=== PATIENT | female | born 1980 | race American Indian/Alaskan Native ===

== ENCOUNTER 2016-10-01 14:05 | Emergency (ER) | payer SELFPAY ==
[2016-10-01 15:14] LABS: Bilirubin,Urine NEG (Negative); Blood,Urine NEG (Negative); Ketones,Urine NEG (Negative); Leukocyte Esterase,Urine NEG (Negative); Mucus,Urine FEW /HPF; Nitrite,Urine NEG (Negative); Protein,Urine <15 mg/dL mg/dL (Negative); Urobilinogen,Urine < 2.0 mg/dL (<2.0)
[2016-10-01 15:26] LABS: Basophils % (Auto) 0.4 % (0.0-1.8); Eosinophils % (Auto) 0.8 % (0.0-4.3); Hematocrit 40.4 % (30.3-42.9); Hemoglobin 13.1 gm/dl (10.1-14.3); Mean Corpuscular HGB Conc 32 % (30-34); Mean Corpuscular Hemoglobin 28 pg (28-32); Mean Corpuscular Volume 86 fl (79-97); Platelet Count 278 K/mm3 (140-440); Red Blood Count 4.69 M/mm3 (3.65-5.03); Red Cell Distribution Width 14.3 % (13.2-15.2); White Blood Count 5.1 K/mm3 (4.5-11.0)
[2016-10-01 19:28] LABS: Alanine Aminotransferase 27 units/L (7-56); Albumin 4.2 g/dL (3.9-5); Alkaline Phosphatase 42 units/L (35-129); BUN/Creatinine Ratio 13.33; Blood Urea Nitrogen 8 mg/dL (7-17); Calcium 9.4 mg/dL (8.4-10.2); Carbon Dioxide 22 mmol/L (22-30); Glucose 94 mg/dL (65-100); Lipase 17 units/L (13-60); Total Protein 8.4 g/dL (6.3-8.2)
[2016-10-01 19:29] LABS: Anion Gap 18 mmol/L; Chloride 96.2 mmol/L (98-107); Potassium 3.7 mmol/L (3.6-5.0); Sodium 132 mmol/L (137-145)
[2016-10-02] MEDS ORDERED: TORADOL IV ONE (01:59)
[2016-10-02] MEDS ORDERED: ZOFRAN IV ONE (01:59)
--- NOTE | 2016-10-02 02:06 | Emergency Department Report ---
HPI - General Chief Complaint: Abdominal Pain Time Seen by Provider: 10/02/16 01:51 - HPI HPI: Room 7 The patient is a 36-year-old female presenting with a chief complaint right- sided abdominal pain. Patient states she's had intermittent pain in the right upper quadrant and right back for 1 month. Patient describes pain as burning and sharp in nature. The patient states there has been no association with meals she has noticed. Patient does admit to nausea but denies vomiting. Patient states her pain increased yesterday prompted her to come to the emergency department. Patient denies fever or diarrhea. Patient denies dysuria or hematuria. The patient currently gives her pain a score of 6/10. Location: Right upper quadrant, right back Duration: Intermittent 1 month Quality: Sharp/Burning Severity: 6/10 Modifying factors: [see above] Context: [see above] Mode of transportation: The patient drove herself to the emergency department and there are no visitors present ED Past Medical Hx - Past Medical History Hx Headaches / Migraines: Yes - Surgical History Past Surgical History?: No - Family History Family history: no significant - Social History Smoking Status: Never Smoker Substance Use Type: Alcohol (occasional) - Medications Home Medications: Home Medications Medication Instructions Recorded Confirmed Last Taken Type Butalb/Acetamin/Caff 50-325-40 1 tab PO Q8HR PRN 10/02/16 10/02/16 Unknown History [Fioricet] Famotidine [Pepcid] 20 mg PO BID #30 tablet 10/02/16 Unknown Rx HYDROcodone/APAP 5-325 [[place] 1 - 2 each PO Q6HR PRN #14 tablet 10/02/16 Unknown Rx 5/325] Ondansetron [Zofran ODT TAB] 8 mg PO Q8HR #20 tab.rapdis 10/02/16 Unknown Rx ED Review of Systems ROS: Stated complaint: R SIDE ABD/BACK PAIN/BURNING Other details as noted in HPI Comment: All other systems reviewed and negative Constitutional: denies: chills, fever Eyes: denies: eye pain, eye discharge, vision change ENT: denies: ear pain, throat pain Respiratory: denies: cough, shortness of breath, wheezing Cardiovascular: denies: chest pain, palpitations Endocrine: no symptoms reported Gastrointestinal: abdominal pain, nausea, constipation. denies: vomiting, diarrhea Genitourinary: denies: urgency, dysuria, discharge Musculoskeletal: back pain. denies: joint swelling, arthralgia Skin: denies: rash, lesions Neurological: denies: headache, weakness, paresthesias Psychiatric: denies: anxiety, depression Hematological/Lymphatic: denies: easy bleeding, easy bruising Physical Exam - Physical Exam Vital Signs: Vital Signs 10/01/16 10/02/16 10/02/16 14:40 00:53 00:55 Temperature 98.3 F Pulse Rate 71 94 H Respiratory 18 14 Rate Blood Pressure 119/75 O2 Sat by Pulse 100 83 L 100 Oximetry 10/02/16 10/02/16 00:56 00:57 Temperature Pulse Rate 78 83 Respiratory 13 20 Rate Blood Pressure 122/74 122/74 O2 Sat by Pulse 100 99 Oximetry Physical Exam: GENERAL: The patient is well-developed well-nourished female lying on stretcher appearing to be in mild discomfort. [] HEENT: Normocephalic. Atraumatic. Extraocular motions are intact. Patient has moist mucous membranes. NECK: Supple. Trachea midline CHEST/LUNGS: Clear to auscultation. There is no respiratory distress noted. HEART/CARDIOVASCULAR: Regular. There is no tachycardia. There is no gallop rub or murmur. ABDOMEN: Abdomen is soft, with tenderness to palpation in the right upper quadrant, right lower quadrant left lower quadrant. There is no rebound or guarding. Absent Iverson sign. Patient has normal bowel sounds. There is no abdominal distention. SKIN: There is no rash. There is no edema. There is no diaphoresis. NEURO: The patient is awake, alert, and oriented. The patient is cooperative. The patient has normal speech MUSCULOSKELETAL: There is no evidence of acute injury. ED Course Vital Signs 10/01/16 10/02/16 10/02/16 14:40 00:53 00:55 Temperature 98.3 F Pulse Rate 71 94 H Respiratory 18 14 Rate Blood Pressure 119/75 O2 Sat by Pulse 100 83 L 100 Oximetry 10/02/16 10/02/16 00:56 00:57 Temperature Pulse Rate 78 83 Respiratory 13 20 Rate Blood Pressure 122/74 122/74 O2 Sat by Pulse 100 99 Oximetry ED Medical Decision Making - Lab Data Result diagrams: 10/01/16 15:01 10/01/16 18:43 Laboratory Tests 10/01/16 10/01/16 10/01/16 14:45 15:01 15:01 WBC 5.1 RBC 4.69 Hgb 13.1 Hct 40.4 MCV 86 MCH 28 MCHC 32 RDW 14.3 Plt Count 278 Lymph % (Auto) 37.1 H Lipscomb % (Auto) 6.5 Eos % (Auto) 0.8 Baso % (Auto) 0.4 Lymph # 1.9 Lipscomb # 0.3 Eos # 0.0 Baso # 0.0 Seg Neutrophils % 55.2 Seg Neutrophils # 2.8 Sodium Potassium Chloride Carbon Dioxide Anion Gap BUN Creatinine Estimated GFR BUN/Creatinine Ratio Glucose Calcium Total Bilirubin AST ALT Alkaline Phosphatase Total Protein Albumin Albumin/Globulin Ratio Lipase HCG, Qual Negative Urine Color Yellow Urine Turbidity Clear Urine pH 6.0 Ur Specific [place] 1.018 Urine Protein <15 mg/dl Urine Glucose (UA) Neg Urine Ketones Neg Urine Blood Neg Urine Nitrite Neg Urine Bilirubin Neg Urine Urobilinogen < 2.0 Ur Leukocyte Esterase Neg Urine WBC (Auto) 1.0 Urine RBC (Auto) 2.0 U Epithel Cells (Auto) 3.0 Urine Mucus Few 10/01/16 18:43 WBC RBC Hgb Hct MCV MCH MCHC RDW Plt Count Lymph % (Auto) Lipscomb % (Auto) Eos % (Auto) Baso % (Auto) Lymph # Lipscomb # Eos # Baso # Seg Neutrophils % Seg Neutrophils # Sodium 132 L Potassium 3.7 Chloride 96.2 L Carbon Dioxide 22 Anion Gap 18 BUN 8 Creatinine 0.6 L Estimated GFR > 60 BUN/Creatinine Ratio 13.33 Glucose 94 Calcium 9.4 Total Bilirubin 0.20 AST 19 ALT 27 Alkaline Phosphatase 42 Total Protein 8.4 H Albumin 4.2 Albumin/Globulin Ratio 1.0 Lipase 17 HCG, Qual Urine Color Urine Turbidity Urine pH Ur Specific [place] Urine Protein Urine Glucose (UA) Urine Ketones Urine Blood Urine Nitrite Urine Bilirubin Urine Urobilinogen Ur Leukocyte Esterase Urine WBC (Auto) Urine RBC (Auto) U Epithel Cells (Auto) Urine Mucus - Radiology Data Radiology results: report reviewed (CT Abd/Pelvis), image reviewed (CT Abd/ Pelvis) CT abdomen and pelvis (read by radiologist)-there is a 9 mm cortical cyst in the right kidney. There are stones. There is no hydronephrosis. In the left kidney there is a corporate area of low density measuring 2.5 cm with peripheral calcification. This demonstrates postcontrast enhancement. This could be evidence of old injury with scarring. Possible mass not excluded. MRI may be indicated for further evaluation. There is no bowel obstruction, colitis or enteritis. The appendix is normal. The uterus is unremarkable. There is an involuting cyst in the right ovary measuring 2.5 cm which may have recently ruptured. There is a small amount of free pelvic fluid which could be secondary to ovarian cyst rupture. There is no free air. There is no abscess or adenopathy. - Differential Diagnosis renal colic, cholelithiasis, pyelonephritis, constipation, peptic ulcer dis Critical care attestation.: If time is entered above; I have spent that time in minutes in the direct care of this critically ill patient, excluding procedure time. ED Disposition Clinical Impression: Right sided abdominal pain, Renal cyst, Ovarian cyst Disposition: TO HOME OR SELFCARE Is pt being admited?: No Does the pt Need Aspirin: No Condition: Stable Instructions: Abdominal Pain (ED) Additional Instructions: Return to the emergency department immediately should you develop worsening symptoms, fever, inability to tolerate food or liquid or any other concerns. Prescriptions: Famotidine [Pepcid] 20 mg PO BID #30 tablet HYDROcodone/APAP 5-325 [[place] 5/325] 1 - 2 each PO Q6HR PRN #14 tablet PRN Reason: Pain Ondansetron [Zofran ODT TAB] 8 mg PO Q8HR #20 tab.rapdis Referrals: PRIMARY CARE, [Primary Care Provider] - 3-5 Days LEE JARAMILLO MD [Staff Physician] - 3-5 Days (Dr. Jaramillo is a quartz mounter. Please follow up with him for further evaluation of your abdominal pain) MARIUSZ CORTEZ MD [Staff Physician] - 3-5 Days (Dr. Cortez is a urologist. Please follow up with him for further evaluation of your kidney cyst.) Time of Disposition: 04:35
[2016-10-02] MEDS ORDERED: NACL ONE (02:30)
--- NOTE | 2016-10-02 04:21 | Cat Scan Report ---
FINAL REPORT PROCEDURE: CT ABDOMEN PELVIS W CON TECHNIQUE: Computerized axial tomography of the abdomen and pelvis was performed after the IV injection of iodinated nonionic contrast. HISTORY: right flank, right sided abdominal pain COMPARISON: No prior studies are available for comparison. FINDINGS: Visualized lower thorax: No significant abnormality. Liver: Normal size and attenuation. Spleen: Normal size and attenuation. Gallbladder and biliary system: Normal. Pancreas: Normal. Adrenals: Normal. Kidneys: There is a 9 millimeter cortical cyst in the right kidney. There are no kidney stones. There is no hydronephrosis. In the left kidney there is a cortical area of low density measuring 2.5 centimeters with peripheral calcification. This demonstrates postcontrast enhancement. This could be evidence of old injury with scarring. Possible mass not excluded. MRI may be indicated for further evaluation.. GI tract: There is no bowel obstruction, colitis or enteritis. The appendix is normal.. Lymph nodes and mesentery: Normal. Vasculature: Normal. Bladder: Normal. Reproductive organs: The uterus is unremarkable. There is an involuting cyst in the right ovary measuring 2.5 centimeters which may have recently ruptured.. Peritoneum: There is a small amount of free pelvic fluid which could be secondary to ovarian cyst rupture. There is no free air. There is no abscess or adenopathy.. Musculoskeletal structures: No significant abnormality. Other: None. IMPRESSION: There is a 9 millimeter cortical cyst in the right kidney. There are no kidney stones. There is no hydronephrosis. In the left kidney there is a cortical area of low density measuring 2.5 centimeters with peripheral calcification. This demonstrates postcontrast enhancement. This could be evidence of old injury with scarring. Possible mass not excluded. MRI may be indicated for further evaluation.. There is no bowel obstruction, colitis or enteritis. The appendix is normal.. The uterus is unremarkable. There is an involuting cyst in the right ovary measuring 2.5 centimeters which may have recently ruptured.. There is a small amount of free pelvic fluid which could be secondary to ovarian cyst rupture. There is no free air. There is no abscess or adenopathy..
[2016-10-02 04:57] VITALS: BP 102/56
== END 2016-10-02 04:56 | disposition home or self-care (01) ==
LOC: ED 14:05
DX: N28.1 Cyst of kidney, acquired (principal); N83.209 Unspecified ovarian cyst, unspecified side; Z88.6 Allergy status to analgesic agent
CPT/HCPCS: 36415; 74177; 80053; 81001; 83690; 84703; 85025; 96374; 96375; 99284; J1885; J2405; Q9967

== ENCOUNTER 2018-11-17 14:28 | Emergency (ER) | payer OTHER ==
--- NOTE | 2018-11-17 14:34 | Emergency Department Report ---
Blank Doc - Documentation Documentation: This is a 38-year-old female that presents with abdominal pain with some nausea. This initial assessment/diagnostic orders/clinical plan/treatment(s) is/are subject to change based on patient's health status, clinical progression and re- assessment by fellow clinical providers in the ED. Further treatment and workup at subsequent clinical providers discretion. Patient/guardians urged not to elope from the ED as their condition may be serious if not clinically assessed and managed. Initial orders include: 1- Patient sent to [facility] for further evaluation and treatment 2- labs 3- UA
[2018-11-17 15:16] LABS: Basophils % (Auto) 0.6 % (0.0-1.8); Eosinophils % (Auto) 1.4 % (0.0-4.3); Hematocrit 37.3 % (30.3-42.9); Lymphocytes # (Auto) 1.5 K/mm3 (1.2-5.4); Lymphocytes % (Auto) 52.3 % (13.4-35.0); Mean Corpuscular HGB Conc 32 % (30-34); Mean Corpuscular Volume 87 fl (79-97); Monocytes # (Auto) 0.3 K/mm3 (0.0-0.8); Monocytes % (Auto) 10.7 % (0.0-7.3); Platelet Count 258 K/mm3 (140-440); Red Blood Count 4.29 M/mm3 (3.65-5.03); Red Cell Distribution Width 14.8 % (13.2-15.2)
[2018-11-17 15:31] LABS: Color,Urine Red (Yellow)
[2018-11-17 15:32] LABS: Bacteria,Urine 1+ /HPF (Negative); Bilirubin,Urine NEG (Negative); Blood,Urine NEG (Negative); Protein,Urine <15 mg/dL mg/dL (Negative); RBC,Urine < 1.0 /HPF (0.0-6.0); Urobilinogen,Urine < 2.0 mg/dL (<2.0); WBC,Urine < 1.0 /HPF (0.0-6.0)
[2018-11-17 15:49] LABS: Alanine Aminotransferase 20 units/L (7-56); Albumin 4.3 g/dL (3.9-5); BUN/Creatinine Ratio 11; Blood Urea Nitrogen 8 mg/dL (7-17); Calcium 9.3 mg/dL (8.4-10.2); Hemolysis Index 24
[2018-11-17] MEDS ORDERED: BENTYL PO ONE (16:01)
[2018-11-17] MEDS ORDERED: ZOFRAN ODT PO ONE (16:01)
[2018-11-17] MEDS ORDERED: PEPCID PO ONE (16:02)
--- NOTE | 2018-11-17 16:09 | Emergency Department Report ---
ED Abdominal Pain HPI - General Chief Complaint: Abdominal Pain Stated Complaint: STOMACH PAIN/NAUSEA Time Seen by Provider: 11/17/18 14:32 Source: patient Mode of arrival: Ambulatory Limitations: No Limitations - History of Present Illness Initial Comments: This is a 38-year-old female who presents to ED complaining of right upper quadrant abdominal pain that started a week ago. Patient states she went to the ER last week think she had chest pain and had a workup for chest pain. Patient states that pain is worsening and she is started to localize it to her upper abdomen and chest. Patient states any worsening past couple of days. Patient's issues of nausea or bleeding feeling somewhat upper abdomen. She denies vomiting/diarrhea/pelvic pain/chest shortness of breath MD Complaint: abdominal pain Location: RUQ Radiation: none Migration to: no migration Severity: mild, moderate Severity scale (0 -10): 5 Quality: cramping Consistency: intermittent Worsens With: eating - Related Data Home Medications Medication Instructions Recorded Confirmed Last Taken Butalb/Acetamin/Caff 50-325-40 1 tab PO Q8HR PRN 10/02/16 10/02/16 Unknown [Fioricet] Previous Rx's Medication Instructions Recorded Last Taken Type Famotidine [Pepcid] 20 mg PO BID #30 tablet 10/02/16 Unknown Rx HYDROcodone/APAP 5-325 [[place] 1 - 2 each PO Q6HR PRN #14 tablet 10/02/16 Unknown Rx 5/325] Ondansetron [Zofran ODT TAB] 8 mg PO Q8HR #20 tab.rapdis 10/02/16 Unknown Rx Dicyclomine [Bentyl] 10 mg PO TID #20 capsule 11/17/18 Unknown Rx Ondansetron [Zofran ODT TAB] 8 mg PO Q8HR #20 tab.rapdis 11/17/18 Unknown Rx Allergies Allergy/AdvReac Type Severity Reaction Status Date / Time codeine Allergy Shortness Verified 11/17/18 14:29 of Breath ED Review of Systems ROS: Stated complaint: STOMACH PAIN/NAUSEA Other details as noted in HPI Comment: All other systems reviewed and negative ED Past Medical Hx - Past Medical History Previous Medical History?: No Hx Headaches / Migraines: Yes - Surgical History Past Surgical History?: No - Social History Smoking Status: Never Smoker Substance Use Type: None - Medications Home Medications: Home Medications Medication Instructions Recorded Confirmed Last Taken Type Butalb/Acetamin/Caff 50-325-40 1 tab PO Q8HR PRN 10/02/16 10/02/16 Unknown History [Fioricet] Famotidine [Pepcid] 20 mg PO BID #30 tablet 10/02/16 Unknown Rx HYDROcodone/APAP 5-325 [[place] 1 - 2 each PO Q6HR PRN #14 tablet 10/02/16 Unknown Rx 5/325] Ondansetron [Zofran ODT TAB] 8 mg PO Q8HR #20 tab.rapdis 10/02/16 Unknown Rx Dicyclomine [Bentyl] 10 mg PO TID #20 capsule 11/17/18 Unknown Rx Ondansetron [Zofran ODT TAB] 8 mg PO Q8HR #20 tab.rapdis 11/17/18 Unknown Rx ED Physical Exam - General Limitations: No Limitations General appearance: alert, in no apparent distress - Head Head exam: Present: atraumatic, normocephalic - Eye Eye exam: Present: normal appearance - ENT ENT exam: Present: mucous membranes moist - Neck Neck exam: Present: normal inspection - Respiratory Respiratory exam: Present: normal lung sounds bilaterally. Absent: respiratory distress - Cardiovascular Cardiovascular Exam: Present: regular rate, normal rhythm. Absent: systolic murmur, diastolic murmur, rubs, gallop - GI/Abdominal GI/Abdominal exam: Present: soft, tenderness, normal bowel sounds. Absent: distended, guarding, rebound, mass (to palpation of the upper right quadrant) - Extremities Exam Extremities exam: Present: normal inspection - Back Exam Back exam: Present: normal inspection - Neurological Exam Neurological exam: Present: alert, oriented X3 - Psychiatric Psychiatric exam: Present: normal affect, normal mood - Skin Skin exam: Present: warm, dry, intact, normal color. Absent: rash ED Course Vital Signs 11/17/18 11/17/18 14:33 18:41 Temperature 98.3 F Pulse Rate 98 H 786 H Respiratory 16 Rate Blood Pressure 123/78 Blood Pressure 121/81 [Left] O2 Sat by Pulse 100 100 Oximetry ED Medical Decision Making - Lab Data Result diagrams: 11/17/18 14:55 11/17/18 14:55 - Radiology Data Radiology results: report reviewed, image reviewed LIMITED RUQ ABDOMINAL ULTRASOUND INDICATION: RUQ pain. COMPARISON: No relevant prior imaging study available. FINDINGS: Pancreas: Visualized portions show no significant abnormality. Abdominal Aorta: No significant abnormality. IVC: No significant abnormality. Liver: No significant abnormality. Normal hepatopedal blood flow in the main portal vein. Gallbladder: There is a tiny 4 mm polyp in the posterior gallbladder wall. No gallstones. Bile ducts: No significant abnormality. Common bile duct measures 2.5 mm. Right kidney: No significant abnormality visualized.. Free fluid: None. Additional Findings: None. IMPRESSION: 1. Tiny gallbladder polyp, which does not require dedicated imaging follow-up in the absence of known risk factors for gallbladder malignancy. 2. No acute findings. No gallstones identified.. Signer Name: Ruy Lau MD Signed: 11/17/2018 5:37 PM Workstation Name: [id number] Transcribed By: COREEN Dictated By: Ruy Lau MD Electronically Authenticated By: Ruy Lau MD Signed Date/Time: 11/17/18 4587 - Medical Decision Making 38-year-old female presents with gall bladder cyst causing abdominal pain Patient received Zofran and Pepcid and Bentyl in the ED. Abdominal ultrasound shows gallbladder states no other abnormality Discussed findings with the patient. Discussed patient to follow-up with fly raiser lockstitch. Patient is erythematous instructions and states she will follow up. Patient received fentanyl and Zofran for relief as home medications. Patient is in no acute distress. Vital signs are stable Critical care attestation.: If time is entered above; I have spent that time in minutes in the direct care of this critically ill patient, excluding procedure time. ED Disposition Clinical Impression: Cyst of gallbladder Disposition: [id number] TO HOME OR SELFCARE Is pt being admited?: No Does the pt Need Aspirin: No Condition: Stable Instructions: Biliary Colic (ED), Acute Nausea and Vomiting (ED), Abdominal Pain (ED) Additional Instructions: Make sure to follow up with the primary care physician as discussed. Take all your medications as you've been prescribed. If you have any worsening symptoms or develop new symptoms please return to ED immediately. Prescriptions: Dicyclomine [Bentyl] 10 mg PO TID #20 capsule Ondansetron [Zofran ODT TAB] 8 mg PO Q8HR #20 tab.rapdis Referrals: RAFI KAYE MD [Primary Care Provider] - 3-5 Days [facility] [Provider Group] - 3-5 Days [facility] [Provider Group] - 3-5 Days Forms: Accompanied Note, Work/School Release Form(ED) Time of Disposition: 18:12
--- NOTE | 2018-11-17 17:41 | Ultrasound Report ---
LIMITED RUQ ABDOMINAL ULTRASOUND INDICATION: RUQ pain. COMPARISON: No relevant prior imaging study available. FINDINGS: Pancreas: Visualized portions show no significant abnormality. Abdominal Aorta: No significant abnormality. IVC: No significant abnormality. Liver: No significant abnormality. Normal hepatopedal blood flow in the main portal vein. Gallbladder: There is a tiny 4 mm polyp in the posterior gallbladder wall. No gallstones. Bile ducts: No significant abnormality. Common bile duct measures 2.5 mm. Right kidney: No significant abnormality visualized.. Free fluid: None. Additional Findings: None. IMPRESSION: 1. Tiny gallbladder polyp, which does not require dedicated imaging follow-up in the absence of known risk factors for gallbladder malignancy. 2. No acute findings. No gallstones identified.. Signer Name: Ruy Lau MD Signed: 11/17/2018 5:37 PM Workstation Name: [id number]
[2018-11-17 18:43] VITALS: BP 121/81
== END 2018-11-17 18:43 | disposition home or self-care (01) ==
LOC: ED 14:28
DX: K82.8 Other specified diseases of gallbladder (principal); G43.909 Migraine, unspecified, not intractable, without status migrainosus; Z88.5 Allergy status to narcotic agent; Z79.899 Other long term (current) drug therapy
CPT/HCPCS: 36415; 76705; 80053; 81001; 84703; 85025; 99284; Q0162

== ENCOUNTER 2020-08-26 10:12 | Emergency (ER) | payer BC, OTHER ==
[2020-08-26 11:07] LABS: Basophils % (Auto) 0.5 % (0.0-1.8); Eosinophils % (Auto) 1.3 % (0.0-4.3); Hematocrit 37.5 % (30.3-42.9); Hemoglobin 12.2 gm/dl (10.1-14.3); Lymphocytes # (Auto) 1.4 K/mm3 (1.2-5.4); Lymphocytes % (Auto) 48.3 % (13.4-35.0); Mean Corpuscular HGB Conc 33 % (30-34); Mean Corpuscular Volume 87 fl (79-97); Monocytes # (Auto) 0.3 K/mm3 (0.0-0.8); Platelet Count 270 K/mm3 (140-440); Red Blood Count 4.31 M/mm3 (3.65-5.03); Red Cell Distribution Width 13.8 % (13.2-15.2)
[2020-08-26 11:23] LABS: Alanine Aminotransferase 19 units/L (7-56); Blood Urea Nitrogen 8 mg/dL (7-17); Hemolysis Index 2
[2020-08-26 11:27] LABS: BUN/Creatinine Ratio 11
--- NOTE | 2020-08-26 12:15 | Emergency Department Report ---
Blank Doc - Documentation Documentation: 40-year-old female that presents with abdominal pain with nausea vomiting. 1- This initial assessment/diagnostic orders/clinical plan/ treatment(s) is/are subject to change based on pt's health status, clinical progression and re- assessment by fellow clinical providers in the ED. Further treatment and workup at subsequent clinical provers discretion. Patient/guardians urged not to elope from ED as their condition may be serious if not clinically assessed and managed. 2-labs 3-UA
[2020-08-26] MEDS ORDERED: FAMOTIDINE 20 MG TAB PO ONE (13:26)
[2020-08-26] MEDS ORDERED: ONDANSETRON 4 MG ODT TAB PO ONE (13:26)
[2020-08-26 15:20] LABS: Bilirubin,Urine NEG (Negative); Blood,Urine NEG (Negative); Color,Urine Yellow (Yellow); Mucus,Urine 1+ /HPF; Urobilinogen,Urine < 2.0 mg/dL (<2.0)
--- NOTE | 2020-08-26 15:59 | Emergency Department Report ---
ED Abdominal Pain HPI - General Chief Complaint: Abdominal Pain Stated Complaint: ABD PAIN Time Seen by Provider: 08/26/20 10:27 Source: patient Mode of arrival: Ambulatory Limitations: No Limitations - History of Present Illness Initial Comments: Patient is a 40-year-old F Irish female who is complaining of nausea and epigastric right upper quadrant discomfort over the last week. Patient states pain is worse after she eats. Is estimated 5 out of 10 in severity. Feels like a tight band like pain across the upper abdomen. She denies actual vomiting. States she has the pain regardless of what she eats. She denies any fevers chills cough cold congestion or diarrhea at this time. - Related Data Home Medications Medication Instructions Recorded Confirmed Last Taken Butalb/Acetamin/Caff 50-325-40 1 tab PO Q8HR PRN 10/02/16 10/02/16 Unknown [Fioricet] Previous Rx's Medication Instructions Recorded Last Taken Type Famotidine [Pepcid] 20 mg PO BID #30 tablet 10/02/16 Unknown Rx HYDROcodone/APAP 5-325 [[place] 1 - 2 each PO Q6HR PRN #14 tablet 10/02/16 Unknown Rx 5/325] Ondansetron [Zofran ODT TAB] 8 mg PO Q8HR #20 tab.rapdis 10/02/16 Unknown Rx Dicyclomine [Bentyl] 10 mg PO TID #20 capsule 11/17/18 Unknown Rx Ondansetron [Zofran ODT TAB] 8 mg PO Q8HR #20 tab.rapdis 11/17/18 Unknown Rx Ondansetron [Zofran Odt] 4 mg PO Q8HR #10 tab.rapdis 08/26/20 Unknown Rx Pantoprazole [Protonix] 40 mg PO QDAY #30 tablet 08/26/20 Unknown Rx Allergies Allergy/AdvReac Type Severity Reaction Status Date / Time codeine Allergy Shortness Verified 11/17/18 14:29 of Breath ED Review of Systems ROS: Stated complaint: ABD PAIN Other details as noted in HPI Comment: All other systems reviewed and negative ED Past Medical Hx - Past Medical History Previous Medical History?: Yes Hx Headaches / Migraines: Yes - Social History Smoking Status: Never Smoker Substance Use Type: None - Medications Home Medications: Home Medications Medication Instructions Recorded Confirmed Last Taken Type Butalb/Acetamin/Caff 50-325-40 1 tab PO Q8HR PRN 10/02/16 10/02/16 Unknown History [Fioricet] Famotidine [Pepcid] 20 mg PO BID #30 tablet 10/02/16 Unknown Rx HYDROcodone/APAP 5-325 [[place] 1 - 2 each PO Q6HR PRN #14 tablet 10/02/16 Unknown Rx 5/325] Ondansetron [Zofran ODT TAB] 8 mg PO Q8HR #20 tab.rapdis 10/02/16 Unknown Rx Dicyclomine [Bentyl] 10 mg PO TID #20 capsule 11/17/18 Unknown Rx Ondansetron [Zofran ODT TAB] 8 mg PO Q8HR #20 tab.rapdis 11/17/18 Unknown Rx Ondansetron [Zofran Odt] 4 mg PO Q8HR #10 tab.rapdis 08/26/20 Unknown Rx Pantoprazole [Protonix] 40 mg PO QDAY #30 tablet 08/26/20 Unknown Rx ED Physical Exam - General Limitations: No Limitations General appearance: alert, in no apparent distress - Head Head exam: Present: atraumatic, normocephalic - Eye Eye exam: Present: normal appearance, PERRL, EOMI - ENT ENT exam: Present: mucous membranes moist - Neck Neck exam: Present: normal inspection - Respiratory Respiratory exam: Present: normal lung sounds bilaterally. Absent: respiratory distress, wheezes, rales, rhonchi - Cardiovascular Cardiovascular Exam: Present: regular rate, normal rhythm. Absent: systolic murmur, diastolic murmur, rubs, gallop - GI/Abdominal GI/Abdominal exam: Present: soft, tenderness (Mild tenderness in right upper quadrant), normal bowel sounds. Absent: distended, guarding, rebound - Extremities Exam Extremities exam: Present: normal inspection - Back Exam Back exam: Present: normal inspection - Neurological Exam Neurological exam: Present: alert, oriented X3 - Psychiatric Psychiatric exam: Present: normal affect, normal mood - Skin Skin exam: Present: warm, dry, intact, normal color. Absent: rash ED Course Vital Signs 08/26/20 10:17 Temperature 98.7 F Pulse Rate 80 Respiratory 18 Rate Blood Pressure 111/77 O2 Sat by Pulse 98 Oximetry ED Medical Decision Making - Lab Data Result diagrams: 08/26/20 10:40 08/26/20 10:40 Lab Results 08/26/20 08/26/20 08/26/20 Range/Units 10:40 10:40 10:40 WBC 3.0 L (4.5-11.0) K/mm3 RBC 4.31 (3.65-5.03) M/mm3 Hgb 12.2 (10.1-14.3) gm/dl Hct 37.5 (30.3-42.9) % MCV 87 (79-97) fl MCH 28 (28-32) pg MCHC 33 (30-34) % RDW 13.8 (13.2-15.2) % Plt Count 270 (140-440) K/mm3 Lymph % (Auto) 48.3 H (13.4-35.0) % [place] % (Auto) 9.0 H (0.0-7.3) % Eos % (Auto) 1.3 (0.0-4.3) % Baso % (Auto) 0.5 (0.0-1.8) % Lymph # (Auto) 1.4 (1.2-5.4) K/mm3 [place] # (Auto) 0.3 (0.0-0.8) K/mm3 Eos # (Auto) 0.0 (0.0-0.4) K/mm3 Baso # (Auto) 0.0 (0.0-0.1) K/mm3 Seg Neutrophils % 40.9 (40.0-70.0) % Seg Neutrophils # 1.2 L (1.8-7.7) K/mm3 Sodium 136 L (137-145) mmol/L Potassium 3.7 (3.6-5.0) mmol/L Chloride 99.7 (98-107) mmol/L Carbon Dioxide 27 (22-30) mmol/L Anion Gap 13 mmol/L BUN 8 (7-17) mg/dL Creatinine 0.7 (0.6-1.2) mg/dL Estimated GFR > 60 ml/min BUN/Creatinine Ratio 11 % Glucose 90 (65-100) mg/dL Calcium 9.0 (8.4-10.2) mg/dL Total Bilirubin 0.20 (0.1-1.2) mg/dL AST 19 (5-40) units/L ALT 19 (7-56) units/L Alkaline Phosphatase 48 (35-129) units/L Total Protein 8.0 (6.3-8.2) g/dL Albumin 4.0 (3.9-5) g/dL Albumin/Globulin Ratio 1.0 % Lipase 13 (13-60) units/L HCG, Qual Negative (Negative) Urine Color (Yellow) Urine Turbidity (Clear) Urine pH (5.0-7.0) Ur Specific [place] (1.003-1.030) Urine Protein (Negative) mg/dL Urine Glucose (UA) (Negative) mg/dL Urine Ketones (Negative) mg/dL Urine Blood (Negative) Urine Nitrite (Negative) Urine Bilirubin (Negative) Urine Urobilinogen (<2.0) mg/dL Ur Leukocyte Esterase (Negative) Urine WBC (Auto) (0.0-6.0) /HPF Urine RBC (Auto) (0.0-6.0) /HPF U Epithel Cells (Auto) (0-13.0) /HPF Urine Mucus /HPF // Range/Units 14:06 WBC (4.5-11.0) K/mm3 RBC (3.65-5.03) M/mm3 Hgb (10.1-14.3) gm/dl Hct (30.3-42.9) % MCV (79-97) fl MCH (28-32) pg MCHC (30-34) % RDW (13.2-15.2) % Plt Count (140-440) K/mm3 Lymph % (Auto) (13.4-35.0) % [place] % (Auto) (0.0-7.3) % Eos % (Auto) (0.0-4.3) % Baso % (Auto) (0.0-1.8) % Lymph # (Auto) (1.2-5.4) K/mm3 [place] # (Auto) (0.0-0.8) K/mm3 Eos # (Auto) (0.0-0.4) K/mm3 Baso # (Auto) (0.0-0.1) K/mm3 Seg Neutrophils % (40.0-70.0) % Seg Neutrophils # (1.8-7.7) K/mm3 Sodium (137-145) mmol/L Potassium (3.6-5.0) mmol/L Chloride (98-107) mmol/L Carbon Dioxide (22-30) mmol/L Anion Gap mmol/L BUN (7-17) mg/dL Creatinine (0.6-1.2) mg/dL Estimated GFR ml/min BUN/Creatinine Ratio % Glucose (65-100) mg/dL Calcium (8.4-10.2) mg/dL Total Bilirubin (0.1-1.2) mg/dL AST (5-40) units/L ALT (7-56) units/L Alkaline Phosphatase (35-129) units/L Total Protein (6.3-8.2) g/dL Albumin (3.9-5) g/dL Albumin/Globulin Ratio % Lipase (13-60) units/L HCG, Qual (Negative) Urine Color Yellow (Yellow) Urine Turbidity Slightly-cloudy (Clear) Urine pH 7.0 (5.0-7.0) Ur Specific [place] 1.016 (1.003-1.030) Urine Protein 30 mg/dl (Negative) mg/dL Urine Glucose (UA) Neg (Negative) mg/dL Urine Ketones Neg (Negative) mg/dL Urine Blood Neg (Negative) Urine Nitrite Neg (Negative) Urine Bilirubin Neg (Negative) Urine Urobilinogen < 2.0 (<2.0) mg/dL Ur Leukocyte Esterase Neg (Negative) Urine WBC (Auto) 1.0 (0.0-6.0) /HPF Urine RBC (Auto) 2.0 (0.0-6.0) /HPF U Epithel Cells (Auto) 12.0 (0-13.0) /HPF Urine Mucus 1+ /HPF - Radiology Data Ultrasound shows a single gallbladder polyp which appears fixed position and is similar to previous studies. No gallstones or pericholecystic fluid found. - Medical Decision Making Patient is a 40-year-old F Irish female who is presenting with right upper quadrant and epigastric discomfort. States the pain is worse when she eats. Has been ruled out for biliary colic. Pain and nausea is likely secondary to some type of dysfunction at the stomach or duodenum. Patient given medication for symptomatic relief and should be discharged home to follow-up with GI for further management and possible EGD Critical care attestation.: If time is entered above; I have spent that time in minutes in the direct care of this critically ill patient, excluding procedure time. ED Disposition Clinical Impression: PUD (peptic ulcer disease) Disposition: DC-01 TO HOME OR SELFCARE Is pt being admited?: No Does the pt Need Aspirin: No Condition: Stable Instructions: Abdominal Pain (ED), Peptic Ulcer, [id number], Food Choices for Gastroesophageal Reflux Disease, Adult Referrals: [facility] [Provider Group] - 3-5 Days Time of Disposition: 15:59
--- NOTE | 2020-08-26 16:03 | Ultrasound Report ---
LIMITED RUQ ABDOMINAL ULTRASOUND INDICATION: RUQ pain. COMPARISON: 11/17/2018. FINDINGS: Pancreas: Visualized portions show no significant abnormality. Abdominal Aorta: No significant abnormality. IVC: No significant abnormality. Liver: The liver measures 14.1 cm in length. No significant abnormality. Normal hepatopedal blood fl ow in the main portal vein. Gallbladder: Tiny 4 mm polyp in the gallbladder is again seen. No cholelithiasis, wall thickening or surrounding fluid.. Bile ducts: No significant abnormality. Common bile duct measures 3.5 mm. Right kidney: No significant abnormality visualized. Free fluid: None. Additional Findings: None. IMPRESSION: Tiny gallbladder polyp, otherwise, unremarkable exam. No change since 11/17/2018.. Signer Name: Az Barksdale Jr, MD Signed: 08/26/2020 3:58 PM Workstation Name: [id number]
[2020-08-26 16:22] VITALS: BP 140/83
== END 2020-08-26 16:23 | disposition home or self-care (01) ==
LOC: ED 10:12
DX: K27.9 Peptic ulcer, site unspecified, unspecified as acute or chronic, without hemorrhage or perforation (principal); G43.909 Migraine, unspecified, not intractable, without status migrainosus; Z79.899 Other long term (current) drug therapy; Z88.6 Allergy status to analgesic agent
CPT/HCPCS: 36415; 76705; 80053; 81001; 83690; 84703; 85025; Q0162

== ENCOUNTER 2021-10-11 09:06 | Emergency (ER) | payer BC ==
--- NOTE | 2021-10-11 11:19 | Emergency Department Report ---
ED Female HPI - General Chief complaint: Urogenital-Female Stated complaint: PELVIC/VAGINA PAIN Source: patient Mode of arrival: Ambulatory Limitations: No Limitations - History of Present Illness Initial comments: 41-year-old female presents to the ED complaining pelvic pain with vaginal discharge. Patient states that she thought maybe she had bacterial vaginosis and treated herself with Flagyl gel. Patient states that Her symptoms became worse. She denies having any unprotected sex states that she used condom. Patient denies any dysuria, fever, chills ,nausea/ vomiting. Patient states that initially the symptoms started with her using some pierre oil moisturizer as some body wash by mistake to the vaginal area x1 week ago. - Related Data Home Medications Medication Instructions Recorded Confirmed Last Taken Butalb/Acetamin/Caff 50-325-40 1 tab PO Q8HR PRN 10/02/16 10/02/16 Unknown [Fioricet] Previous Rx's Medication Instructions Recorded Last Taken Type Famotidine [Pepcid] 20 mg PO BID #30 tablet 10/02/16 Unknown Rx HYDROcodone/APAP 5-325 [[place] 1 - 2 each PO Q6HR PRN #14 tablet 10/02/16 Unknown Rx 5/325] Ondansetron [Zofran ODT TAB] 8 mg PO Q8HR #20 tab.rapdis 10/02/16 Unknown Rx Dicyclomine [Bentyl] 10 mg PO TID #20 capsule 11/17/18 Unknown Rx Ondansetron [Zofran ODT TAB] 8 mg PO Q8HR #20 tab.rapdis 11/17/18 Unknown Rx Ondansetron [Zofran Odt] 4 mg PO Q8HR #10 tab.rapdis 08/26/20 Unknown Rx Pantoprazole [Protonix] 40 mg PO QDAY #30 tablet 08/26/20 Unknown Rx Fluconazole (Nf) [Diflucan TAB] 150 mg PO ONCE 2 Days #2 tablet 10/11/21 Unknown Rx metroNIDAZOLE [Flagyl] 500 mg PO Q12HR 7 Days #14 tab 10/11/21 Unknown Rx Allergies Allergy/AdvReac Type Severity Reaction Status Date / Time codeine Allergy Shortness Verified 11/17/18 14:29 of Breath ED Review of Systems ROS: Stated complaint: PELVIC/VAGINA PAIN Other details as noted in HPI Constitutional: denies: chills, fever Eyes: denies: eye pain, eye discharge, vision change ENT: denies: ear pain, throat pain Respiratory: denies: cough, shortness of breath, wheezing Cardiovascular: denies: chest pain, palpitations Endocrine: no symptoms reported Gastrointestinal: denies: abdominal pain, nausea, diarrhea Genitourinary: discharge. denies: urgency, dysuria Musculoskeletal: denies: back pain, joint swelling, arthralgia Skin: denies: rash, lesions Neurological: denies: headache, weakness, paresthesias Psychiatric: denies: anxiety, depression Hematological/Lymphatic: denies: easy bleeding, easy bruising ED Past Medical Hx - Past Medical History Previous Medical History?: Yes Hx Headaches / Migraines: Yes - Surgical History Past Surgical History?: No - Social History Smoking Status: Never Smoker Substance Use Type: None - Medications Home Medications: Home Medications Medication Instructions Recorded Confirmed Last Taken Type Butalb/Acetamin/Caff 50-325-40 1 tab PO Q8HR PRN 10/02/16 10/02/16 Unknown History [Fioricet] Famotidine [Pepcid] 20 mg PO BID #30 tablet 10/02/16 Unknown Rx HYDROcodone/APAP 5-325 [[place] 1 - 2 each PO Q6HR PRN #14 tablet 10/02/16 Unknown Rx 5/325] Ondansetron [Zofran ODT TAB] 8 mg PO Q8HR #20 tab.rapdis 10/02/16 Unknown Rx Dicyclomine [Bentyl] 10 mg PO TID #20 capsule 11/17/18 Unknown Rx Ondansetron [Zofran ODT TAB] 8 mg PO Q8HR #20 tab.rapdis 11/17/18 Unknown Rx Ondansetron [Zofran Odt] 4 mg PO Q8HR #10 tab.rapdis 08/26/20 Unknown Rx Pantoprazole [Protonix] 40 mg PO QDAY #30 tablet 08/26/20 Unknown Rx Fluconazole (Nf) [Diflucan TAB] 150 mg PO ONCE 2 Days #2 tablet 10/11/21 Unknown Rx metroNIDAZOLE [Flagyl] 500 mg PO Q12HR 7 Days #14 tab 10/11/21 Unknown Rx ED Physical Exam - General Limitations: No Limitations General appearance: alert, in no apparent distress - Head Head exam: Present: atraumatic, normocephalic - Eye Eye exam: Present: normal appearance - ENT ENT exam: Present: mucous membranes moist - Neck Neck exam: Present: normal inspection - Respiratory Respiratory exam: Present: normal lung sounds bilaterally. Absent: respiratory distress - Cardiovascular Cardiovascular Exam: Present: regular rate, normal rhythm. Absent: systolic murmur, diastolic murmur, rubs, gallop - GI/Abdominal GI/Abdominal exam: Present: soft, normal bowel sounds - Speculum exam: Present: vaginal discharge - Extremities Exam Extremities exam: Present: normal inspection - Back Exam Back exam: Present: normal inspection - Neurological Exam Neurological exam: Present: alert, oriented X3 - Psychiatric Psychiatric exam: Present: normal affect, normal mood - Skin Skin exam: Present: warm, dry, intact, normal color. Absent: rash ED Course Vital Signs 10/11/21 09:38 Temperature 98.2 F Pulse Rate 82 Respiratory 20 Rate Blood Pressure 111/76 [Right] O2 Sat by Pulse 100 Oximetry ED Medical Decision Making - Medical Decision Making 41-year-old female presents to the ED complaining pelvic pain with vaginal discharge. Patient states that she thought maybe she had bacterial vaginosis and treated herself with Flagyl gel. Patient states that Her symptoms became worse. She denies having any unprotected sex states that she used condom. Patient denies any dysuria, fever, chills ,nausea/ vomiting. Patient states that initially the symptoms started with her using some pierre oil moisturizer as some body wash by mistake to the vaginal area x1 week ago. Physical examination patient has white cottage discharge noted from the cervical area. Based on pelvic examination we will treat patient for bacterial vaginosis and yeast, Rechecked the patient is resting quietly quietly and comfortable and feeling better. I discussed the results of diagnostic study, my clinical impression and the plan for further treatment with the patient. Patient agrees with plan and discharge at this present time. All question addressed. I have given the patient instruction regarding a diagnosis ,expectation ,follow- up and return precaution. I explained to the patient that emergent condition may arise and to return to the ED for new worsen and any new persisting condition. I have explained the importance of following up with the primary care physician or referral physician listed below has instructed. The patient verbalized understanding of discharge instruction. Abnormal Lab Results 10/11/21 10:41 Urine Color Yellow Urine Turbidity Clear Urine pH 6.0 Ur Specific [place] 1.018 Urine Protein <15 mg/dl Urine Glucose (UA) Neg Urine Ketones Neg Urine Blood Neg Urine Nitrite Neg Ur Reducing Substances Not Reportable Urine Bilirubin Neg Urine Ictotest Not Reportable Urine Urobilinogen < 2.0 Ur Leukocyte Esterase Neg Urine WBC (Auto) < 1.0 Urine RBC (Auto) 1.0 U Epithel Cells (Auto) 7.0 Urine Mucus Few Urine HCG, Qual Negative Critical care attestation.: If time is entered above; I have spent that time in minutes in the direct care of this critically ill patient, excluding procedure time. ED Disposition Clinical Impression: Bacterial vaginosis, Yeast infection Disposition: HOME / SELF CARE / HOMELESS Is pt being admited?: No Does the pt Need Aspirin: No Condition: Stable Instructions: Bacterial Vaginosis (ED), Bacterial Vaginosis, [id number], Vaginal Yeast Infection, Adult Additional Instructions: Take medication as prescribed Return to ED for any worsening symptom Prescriptions: Fluconazole (Nf) [Diflucan TAB] 150 mg PO ONCE 2 Days #2 tablet metroNIDAZOLE [Flagyl] 500 mg PO Q12HR 7 Days #14 tab Referrals: [facility] [Provider Group] - 3-5 Days Forms: Work/School Release Form(ED) Time of Disposition: 12:40
[2021-10-11 12:20] LABS: HCG Qualitative,Urine Negative (Negative)
[2021-10-11 12:22] LABS: Bilirubin,Urine NEG (Negative); Blood,Urine NEG (Negative); Color,Urine Yellow (Yellow); Protein,Urine <15 mg/dL mg/dL (Negative); Urobilinogen,Urine < 2.0 mg/dL (<2.0)
[2021-10-11 12:25] LABS: Mucus,Urine FEW /HPF; WBC,Urine < 1.0 /HPF (0.0-6.0)
[2021-10-11 13:03] VITALS: BP 110/80
== END 2021-10-11 13:01 | disposition home or self-care (01) ==
LOC: ED 09:06
DX: N76.0 Acute vaginitis (principal); B96.89 Other specified bacterial agents as the cause of diseases classified elsewhere; B37.9 Candidiasis, unspecified; G43.909 Migraine, unspecified, not intractable, without status migrainosus; Z88.5 Allergy status to narcotic agent
CPT/HCPCS: 81001; 81025; 87210; 99284